=== PATIENT | male | born 1965 | race Caucasian/White ===

== ENCOUNTER 2020-01-13 13:56 | Inpatient (IN) | payer OTHER ==
--- NOTE | 2020-01-13 15:02 | BHS.RME ---
Substance Use & Tx History - Substance Use History Opiates (Heroin) Substance amount: 3 bags Frequency of use: Daily Substance route: Inhalation (ex: sniffing or snorting) Date of Last Use: 01/13/20 Nicotine Substance amount: 5-6 Frequency of use: Daily Substance route: Smoking Date of Last Use: 01/13/20 Physical/Psych/Mental Status - Behavior General Behavior: Decreased activity - Cooperativeness Cooperativeness: Cooperative - Thinking Thought Processes: Tight Thought content: Future oriented - Physical Health Problems Is patient presently having any pain?: Yes (low back pain/withdrawal) Does patient presently have any injuries (include location): No Does patient currently have a fever: No COWS - Scale Resting Pulse: 1= [place] 81-100 Sweatin= No chills or Flushing Restless Observation: 0= Sits Still Pupil Size: 0= Normal to Room Light Bone or Joint Aches: 1= Mild Discomfort Runny Nose/ Eye Tearin= Runny Nose/Eyes GI Upset > 30mins: 2= Nausea/Diarrhea Tremor Observation: 0= None Yawning Observation: 0= None Anxiety or Irritability: 1=Feels Anxious/Irritable Goose Flesh Skin: 0=Smooth Skin COWS Score: 7
--- NOTE | 2020-01-13 17:40 | HP ---
"COWS - Scale Resting Pulse: 1= [place] 81-100 Sweatin= No chills or Flushing Restless Observation: 0= Sits Still Pupil Size: 0= Normal to Room Light Bone or Joint Aches: 1= Mild Discomfort Runny Nose/ Eye Tearin= Runny Nose/Eyes GI Upset > 30mins: 1= Stomach Cramp Tremor Observation: 0= None Yawning Observation: 0= None Anxiety or Irritability: 1=Feels Anxious/Irritable Goose Flesh Skin: 0=Smooth Skin COWS Score: 6 CIWA Score - Admission Criteria [facility] Guidelines: Admission for Medically Managed Detox: Requires at least one of the followin. CIWA greater than 12 2. Seizures within the past 24 hours 3. Delirium tremens within the past 24 hours 4. Hallucinations within the past 24 hours 5. Acute intervention needed for co occurring medical disorder 6. Acute intervention needed for co occurring psychiatric disorder 7. Severe withdrawal that cannot be handled at a lower level of care (continued vomiting, continued diarrhea, abnormal vital signs) requiring intravenous medication and/or fluids 8. Admission [facility] - HPI Allergies/Adverse Reactions: Allergies Allergy/AdvReac Type Severity Reaction Status Date / Time No Known Allergies Allergy Verified 01/13/20 17:51 History of Present Illness: Search Terms: eloina lopez, 1965 Search Date: 01/13/2020 05:01:00 PM The Drug Utilization Report below displays all of the controlled substance prescriptions, if any, that your patient has filled in the last twelve months. The information displayed on this report is compiled from pharmacy submissions to the Department, and accurately reflects the information as submitted by the pharmacies. This report was requested by: Catina Fountain | Reference #: [id number] There are no results for the search terms that you entered. pt here requesting detox from opiate use , reports 3 bags heroin/day via inhalation , latest use yesterday in the occupational medicine [facility] , denies outpt program , prior detox 1 mo ago [facility] . OD x 1 . PMHX :HTN , HLD , insomnia PSHX : denies PSych : denies Exam Limitations: Clinical Condition - Review of Systems Constitutional: Loss of Appetite EENT: reports: Other (glasses) Respiratory: reports: No Symptoms reported Cardiac: reports: No Symptoms Reported GI: reports: See HPI : reports: No Symptoms Reported Musculoskeletal: reports: Back Pain Integumentary: reports: Other ( left leg injuries from hitting leg against unknown object w/ superficial abrasion) Neuro: reports: Headache Endocrine: reports: No Symptoms Reported Psychiatric: reports: Orientated x3 Patient History - Smoking Cessation Smoking history: Current some day smoker Initiated information on smoking cessation: Yes 'Breaking Loose' booklet given: 01/13/20 - Substances abused Heroin Substance route: Inhalation Frequency: Daily Amount used: 3 bags Age of first use: 20 Date of last use: 01/12/20 Admission Physical Exam [facility] - Physical General Appearance: Yes: Mild Distress, Anxious HEENTM: Yes: EOMI, Hearing grossly Normal, Normocephalic, Normal Voice Respiratory: Yes: Chest Non-Tender, Lungs Clear, No Respiratory Distress, No Accessory Muscle Use Neck: Yes: No masses,lesions,Nodules, Trachea in good position Cardiology: Yes: Regular Rhythm, Regular Rate, S1, S2 Abdominal: Yes: Non Tender, Soft Musculoskeletal: Yes: Gait Steady Extremities: Yes: Normal Range of Motion, Non-Tender Neurological: Yes: Fully Oriented, Alert, Motor Strength 5/5 Integumentary: Yes: Warm - Diagnostic (1) Opioid use disorder Current Visit: Yes Status: Chronic (2) Nicotine dependence Current Visit: Yes Status: Chronic Qualifiers: Nicotine product type: cigarettes Breathalyzer - Breathalyzer Breathalyzer: 0 Urine Drug Screen - Test Device Lot number: [id number] Expiration date: 10/18/21 - Control Is test valid?: Yes - Results Drug screen NEGATIVE: No Urine drug screen results: FEN-Fentanyl, MOP-Opiates Inpatient Rehab Admission - Rehab Decision to Admit Inpatient rehab admission?: No"
[2020-01-13 17:58] VITALS: BMI 25.7
[2020-01-13] MEDS ORDERED: hydrOXYzine PAMOATE 25 MG CAPSULE (FP) PO PRN (18:02)
[2020-01-13] MEDS ORDERED: IBUPROFEN 400 MG TABLET (FP) PO PRN (18:02)
[2020-01-13] MEDS ORDERED: ACETAMINOPHEN 325 MG TABLET (FP) PO PRN ×2 (18:02)
[2020-01-13] MEDS ORDERED: BISMUTH SUBSALICYLATE 524 MG/30 ML UD PO PRN (18:02)
[2020-01-13] MEDS ORDERED: MAG HYDROX/AL HYDROX/SIMETH 30 ML UNIT-DOSE CUP PO PRN (18:02)
[2020-01-13] MEDS ORDERED: MAGNESIUM CITRATE 300 ML BOTTLE PO PRN (18:02)
[2020-01-13] MEDS ORDERED: MAGNESIUM HYDROX 2400MG/30ML ORAL SUSPENSION 30 ML CUP PO PRN (18:02)
[2020-01-13] MEDS ORDERED: METHOCARBAMOL 500 MG TABLET PO PRN (18:02)
[2020-01-13] MEDS ORDERED: MENTHOL/PHENOL 1 EACH UD MM PRN (18:02)
[2020-01-13] MEDS ORDERED: NICOTINE POLACRILEX 2 MG GUM BUC PRN (18:02)
[2020-01-13] MEDS ORDERED: cloNIDine HCL 0.1 MG TABLET PO PRN (18:35)
[2020-01-13] MEDS ORDERED: MELATONIN 5 MG TABLETS PO PRN (22:00)
[2020-01-13] MEDS ORDERED: THIAMINE HCL 100 MG TABLET (FP) PO SCH (22:00)
[2020-01-13] MEDS ORDERED: METHADONE HCL 5 MG TABLET (FOR DETOX USE ONLY) PO ONE (23:00)
[2020-01-14] MEDS ORDERED: PRENATAL VITAMINS W/ FOLIC ACID TABLET (FP) PO SCH (10:00)
[2020-01-14] MEDS ORDERED: METHADONE HCL 10 MG TABLET (FOR DETOX USE ONLY) PO ONE (10:00)
[2020-01-14] MEDS ORDERED: amLODIPine BESYLATE 5 MG TABLET (FP) PO SCH (10:00)
[2020-01-14] MEDS ORDERED: LOPERAMIDE HCL 2 MG CAPSULE PO ONE (10:37)
[2020-01-14] MEDS ORDERED: DICYCLOMINE HCL 10 MG CAPSULE PO ONE (10:38)
[2020-01-14 10:59] VITALS: BP 155/90; PULSE 75; TEMP 97.9
[2020-01-14 11:03] LABS: HEMATOCRIT 43.1 % (35.4-49); HEMOGLOBIN 14.3 GM/dL (11.7-16.9); MCH 29.6 pg (25.7-33.7); MCHC 33.1 g/dl (32.0-35.9); MEAN CELL VOLUME 89.2 fl (80-96); MEAN PLT VOLUME 10.3 fl (7.5-11.1); PLATELET COUNT 215 K/MM3 (134-434); RBC 4.83 M/mm3 (4.00-5.60); RDW 14.5 % (11.9-15.9); WHITE BLOOD COUNT 4.3 K/mm3 (4.0-10.0)
[2020-01-14 11:31] LABS: ALBUMIN 3.5 g/dl (3.4-5.0); BILIRUBIN,TOTAL 0.5 mg/dL (0.2-1); BLOOD UREA NITROGEN 12.2 mg/dL (7-18); CALCIUM 9.3 mg/dL (8.5-10.1); CREATININE 1.1 mg/dL (0.55-1.3); POTASSIUM 4.5 mmol/L (3.5-5.1); TOT PROT 7.1 g/dl (6.4-8.2)
[2020-01-14] MEDS ORDERED: FLU VACCINE QUAD 60 MCG/0.5 ML (MDV 19-20) IM ONE (12:00)
--- NOTE | 2020-01-14 15:37 | DS ---
[facility] Detox Discharge Summary Admission Date: 01/13/20 Discharge Date: 01/14/20 - History Present History: Opioid Dependence Additional Comments: 54 years old male admitted on 01/13/20 for opiate withdrawal sx management treated with [facility] detox regiment insists to leave the detox unit patient is alert oriented x 3 speech clearly coherently ambulating steady gait "things to take care of at home" case discussed with the nurse against medical advice is appropriated Pertinent Past History: time for discharge 53 minutes overhead page Ms Alejandre for AMA as per protocol - Physical Exam Results Vital Signs: Vital Signs Temperature 97.9 F 01/14/20 08:50 Pulse Rate 75 01/14/20 08:50 Respiratory Rate 18 01/14/20 08:50 Blood Pressure 155/90 01/14/20 08:50 O2 Sat by Pulse Oximetry (%) Pertinent Admission Physical Exam Findings: opiate withdrawal Laboratory Last Values WBC 4.3 K/mm3 (4.0-10.0) 01/14/20 08:00 RBC 4.83 M/mm3 (4.00-5.60) 01/14/20 08:00 Hgb 14.3 GM/dL (11.7-16.9) 01/14/20 08:00 Hct 43.1 % (35.4-49) 01/14/20 08:00 MCV 89.2 fl (80-96) 01/14/20 08:00 MCH 29.6 pg (25.7-33.7) 01/14/20 08:00 MCHC 33.1 g/dl (32.0-35.9) 01/14/20 08:00 RDW 14.5 % (11.9-15.9) 01/14/20 08:00 Plt Count 215 K/MM3 (134-434) 01/14/20 08:00 MPV 10.3 fl (7.5-11.1) 01/14/20 08:00 Sodium 138 mmol/L (136-145) 01/14/20 08:00 Potassium 4.5 mmol/L (3.5-5.1) 01/14/20 08:00 Chloride 104 mmol/L (98-107) 01/14/20 08:00 Carbon Dioxide 28 mmol/L (21-32) 01/14/20 08:00 Anion Gap 6 MMOL/L (8-16) L 01/14/20 08:00 BUN 12.2 mg/dL (7-18) 01/14/20 08:00 Creatinine 1.1 mg/dL (0.55-1.3) 01/14/20 08:00 Est GFR (CKD-EPI)AfAm 87.13 01/14/20 08:00 Est GFR (CKD-EPI)NonAf 75.17 01/14/20 08:00 Random Glucose 89 mg/dL (74-106) 01/14/20 08:00 Calcium 9.3 mg/dL (8.5-10.1) 01/14/20 08:00 Total Bilirubin 0.5 mg/dL (0.2-1) 01/14/20 08:00 AST 22 U/L (15-37) 01/14/20 08:00 ALT 23 U/L (13-61) 01/14/20 08:00 Alkaline Phosphatase 139 U/L (45-117) H 01/14/20 08:00 Total Protein 7.1 g/dl (6.4-8.2) 01/14/20 08:00 Albumin 3.5 g/dl (3.4-5.0) 01/14/20 08:00 RPR Titer Nonreactive (NONREACTIVE) 01/14/20 08:00 lab noted - Treatment Hospital Course: Detox Protocol Followed Patient has Accepted a Rehab Referral to: community support approach - Medication Discharge Medications: Ambulatory Orders Amlodipine Besylate [Norvasc -] 5 mg PO DAILY 01/13/20 Atorvastatin Ca [Lipitor] 5 mg PO HS 01/13/20 - Diagnosis (1) Hypertension Status: Chronic Qualifiers: Hypertension type: essential hypertension Qualified Code(s): I10 - Essential (primary) hypertension (2) Nicotine dependence Status: Acute Qualifiers: Nicotine product type: cigarettes Substance use status: in withdrawal Qualified Code(s): F17.213 - Nicotine dependence, cigarettes, with withdrawal (3) Opioid use disorder Status: Acute - AMA Did Patient Leave Against Medical Advice: Yes
--- NOTE | 2020-01-14 16:50 | EKG ---
Test Reason : Blood Pressure : / mmHG Vent. Rate : 071 BPM Atrial Rate : 071 BPM P-R Int : 158 ms QRS Dur : 082 ms QT Int : 390 ms P-R-T Axes : 058 064 020 degrees QTc Int : 423 ms POOR DATA QUALITY, INTERPRETATION MAY BE ADVERSELY AFFECTED NORMAL SINUS RHYTHM NORMAL ECG Confirmed by MD YAW, MAISHA ([id number]) on 01/14/2020 4:49:59 PM Referred By: STORE Confirmed By:MAISHA TIDWELL MD
[2020-01-15] MEDS ORDERED: METHADONE HCL 5 MG TABLET (FOR DETOX USE ONLY) PO ONE (10:00)
== END 2020-01-14 11:32 | disposition left against medical advice (07) | DRG 770 ==
LOC: YASAS 13:56 → Y3N 18:14
PROVIDERS: ADMIT Allergy & Immunology; ATTEND Allergy & Immunology
PROC: HZ2ZZZZ Detoxification Services for Substance Abuse Treatment (ICD-10-PCS; principal; 2020-01-13)
DX: F11.23 Opioid dependence with withdrawal (principal); F17.210 Nicotine dependence, cigarettes, uncomplicated; I10 Essential (primary) hypertension; E78.5 Hyperlipidemia, unspecified; G47.00 Insomnia, unspecified
CPT/HCPCS: 36415; 80053; 85027; 86593; 93005; 93010